=== PATIENT | female | born 1955 | race Caucasian/White ===

== ENCOUNTER 2016-09-28 09:23 | Day surgery (SDC) | payer OTHER ==
--- NOTE | ~2016-09-28 | EGD ---
EGD REPORT [facility] [address] [place] [address] NAME: HARRIET GONSALEZ : [birth year] STATUS : REG [facility] [place] PAT#: [id number] AGE: 61 ADM/REG DATE : 09/28/16 MR#: [id number] REPORT SERV DATE: 09/28/16 DICTATED BY: JANINE BLACKMAN DATE: 09/28/16 REPORT STATUS : Draft TRANSCRIBED BY: [facility] DATE: 09/28/16 Endoscopy Center Patient Name: Harriet Gonsalez Date of : 1955 Attending MD: JANINE BLACKMAN MD Procedure Date No Time: 09/28/2016 Procedure: Upper GI endoscopy Indications: Heartburn, Suspected esophageal reflux, Nausea Referring MD: VIKTORIA JOE Medicines: as per anesthesia Complications: No immediate complications. Procedure: Pre-Anesthesia Assessment: - ASA Grade Assessment: II - A patient with mild systemic disease. After obtaining informed consent, the endoscope was passed under direct vision. Throughout the procedure, the patient's blood pressure, pulse, and oxygen saturations were monitored continuously. The GIF [id number] was introduced through the mouth, and advanced to the third part of duodenum. The upper GI endoscopy was accomplished without difficulty. The patient tolerated the procedure. Findings: The examined esophagus was normal. The entire examined stomach was normal. The cardia and gastric fundus were normal on retroflexion. The examined duodenum was normal. Impression: - Normal esophagus. - Normal stomach. - Normal examined duodenum. Recommendation: - Follow an antireflux regimen. - Continue present medications. Procedure Code(s): --- Professional --- 51058, Esophagogastroduodenoscopy, flexible, transoral; diagnostic, including collection of specimen(s) by brushing or washing, when performed (separate procedure) Diagnosis Code(s): --- Professional --- R12, Heartburn R11.0, Nausea EGD REPORT [facility] [address] [facility] [place] [address] NAME: HARRIET GONSALEZ : [birth year] STATUS : REG [facility] [place] PAT#: [id number] AGE: 61 ADM/REG DATE : 09/28/16 MR#: [id number] REPORT SERV DATE: 09/28/16 DICTATED BY: JANINE BLACKMAN. DATE: 09/28/16 REPORT STATUS : Draft TRANSCRIBED BY: [employer] DATE: 09/28/16 CPT copyright 2013 [employer] [employer]. All rights reserved. The codes documented in this report are preliminary and upon hay sorter review may be revised to meet current compliance requirements. AJNINE BLACKMAN MD 09/28/2016 11:38 AM This report has been signed electronically. Number of Addenda: 0 Note Initiated On: 09/28/2016 11:23 AM Scope Withdrawal Time 0 hours 0 minutes 0 seconds [address] [place] [id number]
[~2016-09-28 09:23] MED LIST: ASAB PO; DIOVAN HCT PO; ESTRACE1 MG PO; FLEXERIL5 MG PO; FLONASE NAS; GLUCPH PO; LIPITOR20 PO; MAGOX4 PO; MOBIC7.5 PO; MUCINEX PO; MULTIPLE VIT PO; OS500+D PO; PROTONIX PO; RANITIDINE300 MG PO; TRICOR145 PO; VITAMIN B 12 IM/SC; VITAMIN D1000 UNI1 PO; XYZAL5 MG PO; ZETIA PO; [UNRECOGNIZED DRUG - OTHER]
== END 2016-09-28 23:59 | disposition home health service (06) ==
LOC: DMU 09:23
PROVIDERS: Internal Medicine Gastroenterology
PROC: 0DJ08ZZ Inspection of Upper Intestinal Tract, Via Natural or Artificial Opening Endoscopic (ICD-10-PCS; principal; 2016-09-28 10:30)
DX: R12 Heartburn (principal); R11.0 Nausea; I10 Essential (primary) hypertension; E11.9 Type 2 diabetes mellitus without complications; K21.9 Gastro-esophageal reflux disease without esophagitis; Z88.0 Allergy status to penicillin
CPT/HCPCS: 82962